=== PATIENT | female | born 1960 | race American Indian/Alaskan Native ===

== ENCOUNTER 2021-01-07 13:54 | Emergency (ER) | payer BC ==
--- NOTE | 2021-01-07 15:20 | Event Note ---
ED Screening Note ED Screening Note: Patient presents for lower abdominal pain that began 2 days ago She has associated urinary frequency and urgency she denies any dysuria She has associated nausea and reports that she had 1 episode of vomiting 2 days ago but has not had any vomiting since then She is able to tolerate p.o. intake She denies any diarrhea She denies any fever, chills, hematochezia, melena, hematemesis States she had a normal bowel movement this morning Past medical history of DM, HTN, hyperlipidemia, CVA No allergies to medicines She has a past abdominal surgical history of x3 This initial assessment/diagnostic orders/clinical plan/treatment(s) is/are subject to change based on patients health status, clinical progression and re- assessment by fellow clinical providers in the ED. Further treatment and workup at subsequent clinical providers discretion. Patient/guardian urged not to elope from the ED as their condition may be serious if not clinically assessed and managed. Initial orders include: Labs, urine
[2021-01-07 15:21] VITALS: BP 147/83
[2021-01-07 16:13] LABS: Basophils # (Auto) 0.1 K/mm3 (0.0-0.1); Basophils % (Auto) 0.5 % (0.0-1.8); Eosinophils # (Auto) 0.2 K/mm3 (0.0-0.4); Eosinophils % (Auto) 1.7 % (0.0-4.3); Hematocrit 39.4 % (30.3-42.9); Hemoglobin 13.4 gm/dl (10.1-14.3); Lymphocytes # (Auto) 3.1 K/mm3 (1.2-5.4); Lymphocytes % (Auto) 28.1 % (13.4-35.0); Mean Corpuscular HGB Conc 34 % (30-34); Mean Corpuscular Volume 87 fl (79-97); Monocytes # (Auto) 0.5 K/mm3 (0.0-0.8); Monocytes % (Auto) 4.6 % (0.0-7.3); Platelet Count 295 K/mm3 (140-440); Red Blood Count 4.52 M/mm3 (3.65-5.03)
[2021-01-07 16:33] LABS: Alanine Aminotransferase 24 units/L (7-56); Albumin 4.1 g/dL (3.9-5); BUN/Creatinine Ratio 20; Blood Urea Nitrogen 18 mg/dL (7-17); Calcium 10.2 mg/dL (8.4-10.2); Hemolysis Index 6
[2021-01-07 16:46] LABS: Bilirubin,Urine NEG (Negative); Blood,Urine NEG (Negative); Color,Urine Yellow (Yellow); Mucus,Urine FEW /HPF; Protein,Urine <15 mg/dL mg/dL (Negative); Urobilinogen,Urine < 2.0 mg/dL (<2.0)
--- NOTE | 2021-01-07 18:33 | Emergency Department Report ---
ED Abdominal Pain HPI - General Chief Complaint: Abdominal Pain Stated Complaint: AB PAIN, VOMITING PUI?: No Time Seen by Provider: 01/07/21 15:18 Source: patient Mode of arrival: Ambulatory Limitations: No Limitations - History of Present Illness Initial Comments: CC: abdominal pain nausea HPI: This is a 60 yo female with hx of CVA, DM, HTN hyperlipidemia who presents with abdominal pain and vomiting since eating pasta and shrimp 2 days ago. She feels as if needs to have bowel movement. She has had good appetite since. She has had previous colonoscopy. Intermittent colicky pain. She denies fever chills hematochezia melena hematemesis. Surgical history includes PCP Dr. Gayle Johnson last bowel movement this morning Complaint: abdominal pain -: Gradual, days(s) (2 days) Location: LLQ, RLQ Radiation: none Severity: moderate Quality: cramping, aching, sharp Consistency: colicky Improves With: nothing Worsens With: nothing Associated Symptoms: nausea, vomiting - Related Data Previous Rx's Medication Instructions Recorded Last Taken Type Promethazine [Phenergan] 25 mg PO Q6HR PRN #10 tab 01/07/21 Unknown Rx Allergies Allergy/AdvReac Type Severity Reaction Status Date / Time No Known Allergies Allergy Unverified 11/10/19 16:02 ED Review of Systems ROS: Stated complaint: AB PAIN, VOMITING Other details as noted in HPI Comment: All other systems reviewed and negative Constitutional: denies: fever Respiratory: denies: cough, shortness of breath Gastrointestinal: abdominal pain, nausea, vomiting ED Past Medical Hx - Past Medical History Previous Medical History?: Yes Hx CVA: Yes Hx Heart Attack/AMI: Yes - Surgical History Past Surgical History?: Yes Additional Surgical History: C section x 3 - Social History Smoking Status: Never Smoker Substance Use Type: None - Medications Home Medications: Home Medications Medication Instructions Recorded Confirmed Last Taken Type Promethazine [Phenergan] 25 mg PO Q6HR PRN #10 tab 01/07/21 Unknown Rx ED Physical Exam - General Limitations: No Limitations General appearance: alert, in no apparent distress, other (Appears well, normal gait) - Head Head exam: Present: atraumatic, normocephalic - Eye Eye exam: Present: normal appearance - ENT ENT exam: Present: mucous membranes moist - Neck Neck exam: Present: normal inspection - Respiratory Respiratory exam: Present: normal lung sounds bilaterally. Absent: respiratory distress, wheezes, rales, rhonchi - Cardiovascular Cardiovascular Exam: Present: regular rate, normal rhythm, normal heart sounds. Absent: systolic murmur, diastolic murmur, rubs, gallop - GI/Abdominal GI/Abdominal exam: Present: soft, distended, normal bowel sounds, other (Mild distention abdominal bloating noted). Absent: tenderness, guarding, rebound - Extremities Exam Extremities exam: Present: normal inspection - Back Exam Back exam: Present: normal inspection - Neurological Exam Neurological exam: Present: alert, oriented X3 - Psychiatric Psychiatric exam: Present: normal affect, normal mood - Skin Skin exam: Present: warm, dry, intact, normal color. Absent: rash ED Course Vital Signs 01/07/21 15:18 Temperature 98.2 F Pulse Rate 96 H Respiratory 16 Rate Blood Pressure 147/83 O2 Sat by Pulse 100 Oximetry ED Medical Decision Making - Lab Data Result diagrams: 01/07/21 15:19 01/07/21 15:19 Laboratory Results - last 24 hr 01/07/21 01/07/21 01/07/21 15:19 15:19 Unknown WBC 11.1 H RBC 4.52 Hgb 13.4 Hct 39.4 MCV 87 MCH 30 MCHC 34 RDW 14.0 Plt Count 295 Lymph % (Auto) 28.1 Bland % (Auto) 4.6 Eos % (Auto) 1.7 Baso % (Auto) 0.5 Lymph # (Auto) 3.1 Bland # (Auto) 0.5 Eos # (Auto) 0.2 Baso # (Auto) 0.1 Seg Neutrophils % 65.1 Seg Neutrophils # 7.2 Sodium 141 Potassium 3.3 L Chloride 101.6 Carbon Dioxide 31 H Anion Gap 12 BUN 18 H Creatinine 0.9 Estimated GFR > 60 BUN/Creatinine Ratio 20 Glucose 120 H Calcium 10.2 Total Bilirubin 0.60 AST 22 ALT 24 Alkaline Phosphatase 89 Total Protein 7.6 Albumin 4.1 Albumin/Globulin Ratio 1.2 Lipase 39 Urine Color Yellow Urine Turbidity Clear Urine pH 5.0 Ur Specific [place] 1.013 Urine Protein <15 mg/dl Urine Glucose (UA) Neg Urine Ketones Neg Urine Blood Neg Urine Nitrite Neg Urine Bilirubin Neg Urine Urobilinogen < 2.0 Ur Leukocyte Esterase Neg Urine WBC (Auto) 1.0 Urine RBC (Auto) 2.0 U Epithel Cells (Auto) 2.0 Urine Mucus Few - Medical Decision Making This [id number] female presents with 2 days of abdominal pain. Suspect constipation viral syndrome reCommended [id number] MiraLAX liquid diet prescribed promethazine - Differential Diagnosis Small bowel obstruction, appendicitis, IBS, gastroparesis Critical care attestation.: If time is entered above; I have spent that time in minutes in the direct care of this critically ill patient, excluding procedure time. ED Disposition Clinical Impression: Constipation, Viral syndrome Disposition: 01 HOME / SELF CARE / HOMELESS Is pt being admited?: No Does the pt Need Aspirin: No Condition: Stable Instructions: Abdominal Pain (ED), Constipation, Adult, Viral Illness, Adult Prescriptions: Promethazine [Phenergan] 25 mg PO Q6HR PRN #10 tab PRN Reason: Nausea Referrals: PRIMARY CARE, [Referring] - as needed
== END 2021-01-07 18:34 | disposition home or self-care (01) ==
LOC: ED 13:54
DX: B34.9 Viral infection, unspecified (principal); K59.00 Constipation, unspecified; I63.9 Cerebral infarction, unspecified; Z98.890 Other specified postprocedural states
CPT/HCPCS: 36415; 80053; 81001; 83690; 85025; 99283